=== PATIENT | female | born 1960 | race Caucasian/White ===

== ENCOUNTER 2019-05-03 14:08 | Emergency (ER) | payer OTHER ==
[2019-05-03 14:23] VITALS: Ht 167.6 cm
[2019-05-03 15:30] LABS: BASOPHIL % 0.2 % (0-2); PLATELET COUNT 187 x10^3mcL (130-400); RED CELL DISTRIBUTION WIDTH 13.6 % (11.5-14.5)
[2019-05-03 15:34] LABS: T3 TOTAL 0.92 ng/mL
[2019-05-03 15:38] LABS: CALCIUM 8.5 mg/dL (8.5-10.1); CARBON DIOXIDE 25.9 mmol/L (21-32); CHLORIDE SERUM 104 mmol/L (98-107); CREATININE SERUM 0.7 mg/dL (0.6-1.0); GFR1 > 60 mL/min; GLUCOSE SERUM 120 mg/dL (74-106); SODIUM SERUM 138 mmol/L (136-145)
[2019-05-03 15:39] LABS: FREE T4 1.1 ng/dL (0.76-1.46); FREE THYROXINE INDEX 2.8 ug/dL (1.4-4.5)
[2019-05-03 15:49] LABS: ALKALINE PHOSPHATASE 62 U/L (46-116); ALT/SGPT 25 U/L (14-59); AST/SGOT 20 U/L (15-37); BILIRUBIN TOTAL 0.37 mg/dL (0.20-1.00); TOTAL PROTEIN, SERUM 7.4 g/dL (6.4-8.2)
[2019-05-03 15:51] LABS: CK-MB < 0.5 ng/mL (0-3.6); CREATINE KINASE 24 U/L (26-192)
[2019-05-03 15:55] LABS: ALBUMIN 3.1 g/dL (3.4-5.0)
[2019-05-03 16:13] LABS: C REACTIVE PROTEIN 18.8 mg/dL (<=0.9)
[2019-05-03 17:04] LABS: UA SPECIFIC GRAVITY <=1.005 (1.005-1.035); microscopic required? YES; urine erythrocyte 2+ (NEGATIVE)
[2019-05-03 17:26] LABS: ERYTHROCYTE SED RATE 73 mm/hr (0-30)
[2019-05-03 18:33] VITALS: BP 107/61
== END 2019-05-03 18:34 | disposition home or self-care (01) ==
LOC: ED 14:08
PROVIDERS: Specialist
DX: H66.41 Suppurative otitis media, unspecified, right ear (principal)
CPT/HCPCS: 36600; 84439; J0696; J1885; J2405; J3010; J7060; Q0092